=== PATIENT | male | born 1970 | race Caucasian/White ===

== ENCOUNTER → 2019-09-13 09:34 | Outpatient (BNVA) | payer BC, SELFPAY | PROVIDERS: PCP Nurse Practitioner Family; Visit Provider Internal Medicine Rheumatology | DX: M25.541 Pain in joints of right hand (principal); Z11.59 Encounter for screening for other viral diseases; Z79.899 Other long term (current) drug therapy; Z11.1 Encounter for screening for respiratory tuberculosis; M25.542 Pain in joints of left hand; M77.9 Enthesopathy, unspecified; Z86.19 Personal history of other infectious and parasitic diseases; F17.210 Nicotine dependence, cigarettes, uncomplicated; Z72.89 Other problems related to lifestyle | CPT/HCPCS: 36415; 80076; 82565; 85025; 85651; 86038; 86140; 86480; 86704; 86803; 86812; 87340; 87806; 99204 ==

== ENCOUNTER 2019-09-15 13:32 | Outpatient (CLI) | payer BC, SELFPAY ==
--- NOTE | 2019-09-15 13:46 | XR_ITS ---
WS: [id number] RIGHT HAND: 3 VIEW(S) TECHNIQUE: PA, oblique and lateral. HISTORY: inflammatory arthritis COMPARISON: None available. No acute fracture or dislocation. No soft tissue or bone abnormality. No periarticular osteopenia. XR/XR hand RT min 3V* [id number] IMPRESSION: Normal RIGHT hand.
--- NOTE | 2019-09-15 13:46 | XR_ITS ---
WS: [id number] LEFT HAND: 3 VIEW(S) TECHNIQUE: PA, oblique and lateral. HISTORY: inflammatory arthritis COMPARISON: None available. No acute fracture or dislocation. No soft tissue or bone abnormality. No periarticular osteopenia. XR/XR hand LT min 3V* [id number] IMPRESSION: Normal LEFT hand.
--- NOTE | 2019-09-15 13:46 | XR_ITS ---
WS: [id number] RIGHT FOOT: 3 VIEW(S) TECHNIQUE: AP, oblique and lateral. HISTORY: inflammatory arthritis COMPARISON: None available. No acute fracture or dislocation. Normal tarsal/metatarsal alignment. No soft tissue abnormality or bone destruction. XR/XR foot RT min 3V* [id number] IMPRESSION: Normal RIGHT foot.
--- NOTE | 2019-09-15 13:46 | XR_ITS ---
WS: [id number] CERVICAL SPINE 3 VIEWS HISTORY: inflammatory arthritis COMPARISON: None available. Mild straightening of the normal cervical lordosis. Posterior alignment is normal. Mild hypertrophic osteophytes from C3 to C6. Disc spaces and vertebral body heights are well-maintained. Soft tissues are normal. XR/XR cervical spine 3V* [id number] IMPRESSION: Mild straightening of the normal cervical lordosis with mild spondylosis. No fr acture.
--- NOTE | 2019-09-15 13:46 | XR_ITS ---
WS: [id number] RIGHT ELBOW: 2 VIEW(S) TECHNIQUE: AP and lateral. HISTORY: inflammatory arthritis COMPARISON: None available. No acute fractures or dislocation. No joint effusion. No soft tissue abnormality. XR/XR elbow RT 2V [id number] IMPRESSION: Normal RIGHT elbow.
--- NOTE | 2019-09-15 13:46 | XR_ITS ---
WS: [id number] LEFT ELBOW: 2 VIEW(S) TECHNIQUE: AP and lateral. HISTORY: inflammatory arthritis COMPARISON: None available. No acute fractures or dislocation. No joint effusion. No soft tissue abnormality. XR/XR elbow LT 2V [id number] IMPRESSION: Normal LEFT elbow.
--- NOTE | 2019-09-15 13:46 | XR_ITS ---
WS: [id number] CHEST 2 VIEWS HISTORY: inflammatory arthritis COMPARISON: None available. Lungs: Clear with no abnormality. No pleural effusion or pneumothorax. Cardiac size: Normal. Mediastinum/Aorta: Normal mediastinum. Bones: Normal. XR/XR chest 2V* [id number] IMPRESSION: Normal chest.
--- NOTE | 2019-09-15 13:46 | XR_ITS ---
WS: [id number] RIGHT KNEE: 3 VIEW(S) TECHNIQUE: AP, oblique(s) and lateral. HISTORY: inflammatory arthritis COMPARISON: None available. No fracture or dislocation. No joint space narrowing or osteophytes. No joint effusion. No soft tissue abnormality. XR/XR knee RT 3V* [id number] IMPRESSION: Normal RIGHT knee.
--- NOTE | 2019-09-15 13:46 | XR_ITS ---
WS: [id number] LEFT FOOT: 3 VIEW(S) TECHNIQUE: AP, oblique and lateral. HISTORY: inflammatory arthritis COMPARISON: None available. No acute fracture or dislocation. Normal tarsal/metatarsal alignment. No soft tissue abnormality or bone destruction. XR/XR foot LT min 3V* [id number] IMPRESSION: Normal LEFT foot.
--- NOTE | 2019-09-15 13:46 | XR_ITS ---
WS: [id number] LEFT KNEE: 3 VIEW(S) TECHNIQUE: AP, oblique(s) and lateral. HISTORY: inflammatory arthritis COMPARISON: None available. No fracture or dislocation. Sclerotic focus in the distal femoral diaphysis measures 8 mm and is prob ably benign bone island. No joint space narrowing or osteophytes. No joint effusion. No soft tissue abnormality. XR/XR knee LT 3V* [id number] IMPRESSION: Normal LEFT knee.
== END 2019-09-15 13:33 | disposition home or self-care (01) ==
LOC: RADWPI 13:37
PROVIDERS: PCP Nurse Practitioner Family; Visit Provider Internal Medicine Rheumatology
DX: M19.90 Unspecified osteoarthritis, unspecified site (principal)
CPT/HCPCS: 71046; 72040; 73070; 73130; 73562; 73630

== ENCOUNTER → 2019-10-24 11:29 | Outpatient (BNVA) | payer BC, SELFPAY | PROVIDERS: PCP Nurse Practitioner Family; Visit Provider Internal Medicine Rheumatology | DX: M25.541 Pain in joints of right hand (principal); M25.542 Pain in joints of left hand; Z79.899 Other long term (current) drug therapy; Z86.19 Personal history of other infectious and parasitic diseases; M47.812 Spondylosis without myelopathy or radiculopathy, cervical region; M77.01 Medial epicondylitis, right elbow; M77.12 Lateral epicondylitis, left elbow | CPT/HCPCS: 99214 ==

== ENCOUNTER → 2021-04-01 09:07 | Outpatient (BNVA) | payer BC, SELFPAY | PROVIDERS: PCP Nurse Practitioner Family; Visit Provider Anesthesiology Pain Medicine | DX: M51.16 Intervertebral disc disorders with radiculopathy, lumbar region (principal); M47.816 Spondylosis without myelopathy or radiculopathy, lumbar region; M79.605 Pain in left leg; F17.290 Nicotine dependence, other tobacco product, uncomplicated | CPT/HCPCS: 99204 ==

== ENCOUNTER 2021-11-09 01:18 | Emergency (ER) | payer BC, SELFPAY ==
[2021-11-09 01:39] VITALS: BP 141/72; PULSE 90; RESP 16; TEMP 36.9; O2SAT 97; BMI 25.0
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
[2021-11-09 02:12] VITALS: BP 141/72; PULSE 90; RESP 16; TEMP 36.9; O2SAT 97
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
[2021-11-09 02:28] VITALS: BP 141/72; PULSE 90; RESP 16; TEMP 36.9; O2SAT 97
== END 2021-11-09 02:29 | disposition home or self-care (01) ==
PROVIDERS: Emergency Provider Emergency Medicine
DX: S62.316A Displaced fracture of base of fifth metacarpal bone, right hand, initial encounter for closed fracture (principal); F17.210 Nicotine dependence, cigarettes, uncomplicated; W22.09XA Striking against other stationary object, initial encounter
CPT/HCPCS: 73130; 99283

== ENCOUNTER 2021-11-13 15:19 | Outpatient (CLI) | payer BC, SELFPAY | END 2021-11-13 15:20 | disposition home or self-care (01) | LOC: SPT 15:20 | PROVIDERS: Visit Provider Specialist | DX: Z46.89 Encounter for fitting and adjustment of other specified devices (principal); S62.346D Nondisplaced fracture of base of fifth metacarpal bone, right hand, subsequent encounter for fracture with routine healing; X58.XXXD Exposure to other specified factors, subsequent encounter | CPT/HCPCS: 97760; L3984 ==

== ENCOUNTER → 2021-12-10 09:00 | Outpatient (BNVA) | payer BC, SELFPAY | PROVIDERS: Visit Provider Specialist | DX: S62.306A Unspecified fracture of fifth metacarpal bone, right hand, initial encounter for closed fracture (principal); X58.XXXA Exposure to other specified factors, initial encounter | CPT/HCPCS: 73110 ==

== ENCOUNTER → 2022-01-05 15:03 | Outpatient (BNVA) | payer BC, SELFPAY | PROVIDERS: Visit Provider Specialist | DX: S62.316D Displaced fracture of base of fifth metacarpal bone, right hand, subsequent encounter for fracture with routine healing (principal); X58.XXXD Exposure to other specified factors, subsequent encounter | CPT/HCPCS: 73110 ==

== ENCOUNTER 2023-02-24 07:08 | Outpatient (CLI) | payer BC, SELFPAY ==
--- NOTE | 2023-02-24 | US_ITS ---
WS: [id number] ULTRASOUND ABDOMEN LIMITED CLINICAL INFORMATION: RT LIVER LESION COMPARISON: None. FINDINGS: Liver Size: Normal. Craniocaudal length: 14.9 cm. Echogenicity: Normal. Surface nodularity: None. Mass (size and location): Tiny cyst in the liver measuring 7.5 x 9.3 mm Bile ducts Intrahepatic ducts: Normal. Common bile duct diameter: 0.5 cm. Gallbladder Normal. Gallstones: None. Gallbladder sludge: None. Gallbladder wall thickening: None. Pericholecystic fluid: None. Sonographic Boggs sign: Absent. Pancreas Normal as visualized. Right kidney: Normal. Hydronephrosis: None. Size: 11.3 cm x 5.7 cm x 5.1 cm. Abdominal aorta and IVC Visualized portions are normal. Ascites: None. IMPRESSION: 1. Tiny cyst in the liver measuring 7.5 x 9.3 mm 2. Normal common bile duct. 3. Prior cholecystectomy. 4. No hydronephrosis in the RIGHT kidney.
== END 2023-02-24 07:09 | disposition home or self-care (01) ==
LOC: RAD 07:08
PROVIDERS: Visit Provider Nurse Practitioner Family
DX: K76.9 Liver disease, unspecified (principal); R63.5 Abnormal weight gain; R68.81 Early satiety
CPT/HCPCS: 76705

== ENCOUNTER 2024-02-10 22:09 | Emergency (ER) | payer BC, SELFPAY ==
[2024-02-10 22:26] VITALS: BP 109/73; PULSE 83; RESP 18; TEMP 36.8; O2SAT 95; BMI 30.5
--- NOTE | 2024-02-10 22:39 | XRR_ITS ---
PROCEDURE INFORMATION: Exam: XR Left Hip Exam date and time: 02/10/2024 11:05 PM Age: 53 years old Clinical indication: Hip pain; Left hip; Additional info: Fall, left lower back and hip pain TECHNIQUE: Imaging protocol: Radiologic exam of the left hip. Views: 2 or 3 views hip with pelvis when performed. COMPARISON: CR XR lumbar spine 2-3V* [id number] 02/10/2024 11:05 PM FINDINGS: Bones/joints: No evidence of acute fracture or dislocation. No erosive disease. Mild lower lumbar degenerative change. Soft tissues: Unremarkable. XR/XR hip LT 2-3V wo/w pel* [id number] IMPRESSION: No acute bony injury.
--- NOTE | 2024-02-10 22:39 | XRR_ITS ---
PROCEDURE INFORMATION: Exam: XR Lumbosacral Spine Exam date and time: 02/10/2024 11:05 PM Age: 53 years old Clinical indication: Low back pain; Additional info: Fall, left lower back and hip pain TECHNIQUE: Imaging protocol: Radiologic exam of the lumbosacral spine. Views: 2 or 3 views. COMPARISON: CR XR hip LT 2-3V wo/w pel* [id number] 02/10/2024 11:05 PM FINDINGS: Bones/joints: There are 5 lumbar type vertebrae in normal alignment. Vertebral body heights are normal throughout. There is mild lower lumbar degenerative disc disease. Subjective bony demineralization. Soft tissues: Unremarkable. XR/XR lumbar spine 2-3V* [id number] IMPRESSION: 1. No acute abnormality. Mild lower lumbar degenerative disc disease. 2. Subjective bony demineralization could be quantified with DEXA.
[2024-02-10] MEDS: HYDROcodone-acetaminophen 5-325 mg Tablet 1 TAB PO (23:35)
--- NOTE | 2024-02-10 23:35 | W.ED.FALL ---
HPI - Fall General: Chief Complaint: Fall Stated Complaint: Fall Hip Pain Time Seen by Provider: 02/10/24 23:18 History of Present Illness: 53-year-old man with a history of restless legs and hypothyroidism who presents to the emergency room with left hip and low back pain. He had a fall earlier while walking. Initially he says he walked it off and felt okay. He says as the evening progressed the pain has become much worse. He is now having some difficulty with walking. No deformities. Related Data Home Medications Medication Instructions Recorded Confirmed levothyroxine 75 mcg capsule 75 mcg PO DAILY 07/13/19 01/05/22 gabapentin 300 mg capsule 300 mg PO TID 04/01/21 01/05/22 Previous Rx's Medication Instructions Recorded hydrocodone 5 mg-acetaminophen 325 1 tab PO Q8H PRN pain #7 tabs 11/09/21 mg tablet fast form ulnar gutter #1 ea 11/13/21 cyclobenzaprine 10 mg tablet 10 mg PO Q8H PRN muscle spasm #20 02/11/24 tabs diclofenac sodium 50 mg 50 mg PO BID PRN pain #14 tabs 02/11/24 tablet,delayed release Allergies Allergy/AdvReac Type Severity Reaction Status Date / Time doxycycline Allergy Mild rash Verified 01/05/22 15:40 Penicillins AdvReac Unknown Verified 01/05/22 15:40 Review of Systems Narrative: Constitutional symptoms: Negative except as documented in HPI. Skin symptoms: Negative except as documented in HPI. Eye symptoms: Negative except as documented in HPI. ENMT symptoms: Negative except as documented in HPI. Respiratory symptoms: Negative except as documented in HPI. Cardiovascular symptoms: Negative except as documented in HPI. Gastrointestinal symptoms: Negative except as documented in HPI. Genitourinary symptoms: Negative except as documented in HPI. Musculoskeletal symptoms: Negative except as documented in HPI. Neurologic symptoms: Negative except as documented in HPI. Psychiatric symptoms: Negative except as documented in HPI. Endocrine symptoms: Negative except as documented in HPI. [facility] PFSH: Medical History (Updated 02/11/24 @ 00:18 by Shanell Ku MD) H/O giardiasis Enthesitis Hypothyroidism Joint pain Surgical History History of cholecystectomy History of back surgery History of dental surgery Family History Other CAD (coronary artery disease) Cancer Heart disease Rheumatoid arthritis Denies family history of Diabetes Systemic lupus erythematosus (SLE) in adult Hypertension Stroke Social History Smoking and tobacco/nicotine status: current every day tobacco/nicotine user (CIGARS) Alcohol intake: current Alcohol intake frequency: holidays/special occasions only Physical Exam Narrative: EXAM NARRATIVE: General: Alert, no acute distress. Skin: warm and dry Head: Normocephalic Neck: Trachea midline Eye: Extraocular movements are intact. Ears, nose, mouth and throat: Oral mucosa moist Respiratory: Respirations are non-labored Musculoskeletal: Normal ROM Neurological: Alert and oriented, No focal neurological deficit observed. Psychiatric: Cooperative, appropriate mood & affect. Course Vital Signs: Vital signs: Vital Signs Temperature 98.3 F 02/10/24 22:26 Pulse Rate 83 02/10/24 22:26 Respiratory Rate 18 02/10/24 22:26 Blood Pressure 109/73 02/10/24 22:26 Pulse Oximetry 95 02/10/24 22:26 Oxygen Delivery Me thod Room Air 02/10/24 22:26 MDM - Fall Medical Decision Making X-ray of the left hip and pelvis: No obvious fractures or dislocations. This was reviewed and interpreted by myself the emergency room physician. I also reviewed the radiology report. X-ray of the lumbar spine: No fracture. Good alignment. No step-offs. This was reviewed and interpreted by myself the emergency room physician. Assessment and plan: Hip injury ?IM Toradol, IM Norflex, p.o. hydrocodone and p.o. Zofran - Discharged home - Discussed plan with patient. Answered any questions. - Evaluation and treatment of this problem were appropriate in the emergency setting. XR interpretation done by ED provider, pending radiology final review Discharge Plan Discharge Patient Disposition: Home Clinical Impression: Contusion of hip Condition: Stable Prescriptions: New cyclobenzaprine 10 mg tablet 10 mg PO Q8H PRN (Reason: muscle spasm) Qty: 20 0RF diclofenac sodium 50 mg tablet,delayed release (DR/EC) 50 mg PO BID PRN (Reason: pain) Qty: 14 0RF No Action levothyroxine 75 mcg capsule 75 mcg PO DAILY gabapentin 300 mg capsule 300 mg PO TID (DME) fast form ulnar gutter See Rx Instructions .ROUTE .MEDSUPPLY Qty: 1 0RF Rx Instructions: As directed hydrocodone-acetaminophen 5-325 mg tablet 1 tab PO Q8H PRN (Reason: pain) Qty: 7 0RF Discharge Orders: Discharge ED (Routine); Ordered 02/11/24 Ordered By: Shanell Ku Referrals: Jo Ann Phelan NP [Primary Care Provider] - Discharge Diet: Usual diet Discharge Activity: Increase activity as tolerated Patient Instructions: Pain Management Activity Restrictions/Additional Instructions: Thank you for choosing [facility] for your healthcare needs today. Please realize this is an emergency room and that we are providing you with a medical screening exam and this may not be complete and all inclusive of all the testing and or work up that you may need to determine your ailment or severity of your illness. You have been screened and evaluated and felt safe for discharge. Health conditions do change or evolve sometimes and as such it is important that you follow up with your Primary Doctor to be re checked, 3-5 days is a general good time frame for follow up. You are always welcome to return to the ED for re assessment if your symptoms are worsening or you have new concerns Coding Level of Care Code ED Childcare Worker for Loly Sánchez
[2024-02-10] MEDS: ondansetron 4 MG Tablet PO (23:36)
[2024-02-10] MEDS: orphenadrine 30 mg/mL Inj 2 mL 60 MG IM (23:37)
[2024-02-10] MEDS: ketorolac 60 mg/2 mL INJ IM (23:38)
[2024-02-11 00:46] VITALS: BP 133/85; PULSE 81; RESP 18; O2SAT 95
== END 2024-02-11 00:45 | disposition home or self-care (01) ==
PROVIDERS: Emergency Provider Emergency Medicine; PCP Nurse Practitioner Family
DX: S70.02XA Contusion of left hip, initial encounter (principal); W18.39XA Other fall on same level, initial encounter; F17.290 Nicotine dependence, other tobacco product, uncomplicated
CPT/HCPCS: 72100; 73502; 96372; 99284; J1885; J2360; Q0162

== ENCOUNTER 2024-05-26 13:20 | Outpatient (CLI) | payer BC, SELFPAY ==
--- NOTE | 2024-05-26 13:30 | XR_ITS ---
WS: [id number] Exam: XR KUB [id number] Date/Time of Exam: 05/26/2024 1:32 PM Reason For Exam: URINATION FREQUENCY No bowel obstruction or pneumoperitoneum. No sign of organ enlargement. Surgical clips in the upper R IGHT abdomen. Bony structures are unremarkable. Pelvic calcifications noted most likely phleboliths. XR/XR KUB [id number] IMPRESSION: 1. Negative KUB.
== END 2024-05-26 13:21 | disposition home or self-care (01) ==
PROVIDERS: PCP Nurse Practitioner Family; Visit Provider Nurse Practitioner Family
DX: R35.0 Frequency of micturition (principal); R93.89 Abnormal findings on diagnostic imaging of other specified body structures
CPT/HCPCS: 74018

== ENCOUNTER 2024-08-07 13:41 | Outpatient (CLI) | payer BC, SELFPAY ==
--- NOTE | 2024-08-07 13:44 | XR_ITS ---
WS: [id number] SCREENING DEXA SCAN [place] CLINICAL INFORMATION: SCREENING FOR OSTEOPOROSIS COMPARISON: None. FINDINGS: The L1-L4 bone mineral density measures 1.036 g/cm2. This corresponds to a T score score of -1.5 and Z score of -2.0. Left femoral neck bone mineral density measures 0.944 g/cm2. This corresponds to a T score of -1.1 and Z score of -1.1. Right femoral neck bone mineral density measures 0.948 g/cm2. This corresponds to a T score -1.1of and Z score of -1.1. Mean femoral neck bone mineral density measures 0.946 g/cm2. This corresponds to a T score of -1.1 and Z score of -1.1. XR/XR DEXA axial skeleton* [id number] IMPRESSION: Osteopenia lumbar spine. Osteopenia femoral necks. Patient's FRAX calculated 10 year probability for major osteoporotic fracture i s 5.7% and osteoporotic hip fracture is 0.7%.
== END 2024-08-07 13:42 | disposition home or self-care (01) ==
PROVIDERS: PCP Nurse Practitioner Family; Visit Provider Nurse Practitioner Family
DX: Z13.820 Encounter for screening for osteoporosis (principal); M85.89 Other specified disorders of bone density and structure, multiple sites
CPT/HCPCS: 77080